=== PATIENT | female | born 1965 | race Caucasian/White ===

== ENCOUNTER 2016-12-14 13:16 | Emergency (ER) | payer OTHER ==
[~2016-12-14] VITALS: Ht 152.4 cm; Wt 49.9 kg
--- NOTE | 2016-12-14 13:29 | ED GI/GU/ABDOMINAL COMPLAINT ---
History of Present Illness General Chief Complaint: General Adult Stated Complaint: PT IS HAVING DIARRHEA , STOMACH PAINS Source: patient Exam Limitations: no limitations Vital Signs & Intake/Output Vital Signs & Intake/Output Vital Signs Date Time Temp Pulse Resp B/P B/P Pulse O2 O2 Flow FiO2 Mean Ox Delivery Rate 12/14 1529 96.5 61 18 101/56 98 Room Air 12/14 1457 Room Air Room Air 12/14 1321 98.1 55 16 94/65 97 Room Air Allergies Coded Allergies: morphine (HIVES, ITCHY 12/14/16) Reconcile Medications Escitalopram Oxalate 20 MG TABLET 1 TAB PO DAILY MENTAL HEALTH (Reported) Omeprazole Magnesium (Prilosec Otc) 20 MG TABLET.DR 1 TAB PO DAILY PUD Triage Note: PT STATES SHE IS HAVING SEVERE PAIN IN EPIGASTRIC AREA. PT STATES HER DR. THINKS IT COULD BE HER PANREAS. PT DENIES ETOH. PT STATES SHE HAS HAD DIARRHEA SINCE YESTERDAY. Triage Nurses Notes Reviewed? yes ? N Is pt currently ? No Onset: 2 DAYS AGO Duration: minute(s): Timing: MULTIPLE EPISODES DAILY Quality/Severity: stabbing Location: epigastric Radiation: no radiation Activities at Onset: none HPI: 51 Y/O FEMALE WITH H/O ETOH ABUSE (HAS BEEN SOBER FOR "MANY YEARS") PRESENTING WITH INTERMITTENT EPISODES OF NON-RADIATING, SHARP EPIGASTRIC PAIN OVER THE PAST 2 DAYS. EPISODES WILL LAST ABOUT 60 SECONDS AND THEN SELF RESOLVE, WITH NO WORSENING OR ALLEVIATING FACTORS. HAS TRIED TUMS WITHOUT RELIEF. ALSO ENDORSES DECREASED PO INTAKE AND DARK BROWN DIARRHEA. DENIES FEVERS, NAUSEA, VOMITING, DYSURIA, OR VAG DISCHARGE/BLEEDING. NO RECENT ETOH OR NSAID USE. NO SICK CONTACTS OR RECENT TRAVEL. Denies any hematuria dysuria (SHONA GARNETT) Past History Travel History Traveled to [place] past 21 day No Medical History Any Pertinent Medical History? see below for history Surgical History Surgical History: non-contributory Psychosocial History What is your primary language [place] Tobacco Use: Never used ETOH Use: denies use Illicit Drug Use: denies illicit drug use Family History Hx Contributory? No (SHONA GARNETT) Review of Systems Review of Systems Constitutional: Denies: fever, malaise, weakness. EENTM: Reports: no symptoms. Respiratory: Reports: no symptoms. Cardiovascular: Reports: no symptoms. GI: Reports: abdominal pain, diarrhea. Denies: melena, nausea, bloody stool, vomiting. Genitourinary: Denies: discharge, dysuria, frequency, urgency. Musculoskeletal: Reports: no symptoms. Skin: Reports: no symptoms. Neurological/Psychological: Reports: no symptoms. Hematologic/Endocrine: Reports: no symptoms. Immunologic/Allergic: Reports: no symptoms. (SHONA GARNETT) Physical Exam Physical Exam General Appearance: well developed/nourished, no apparent distress Head: atraumatic Eyes: Bilateral: normal appearance. Ears, Nose, Throat, Mouth: hearing grossly normal Neck: normal inspection Respiratory: normal breath sounds, lungs clear Cardiovascular: regular rate/rhythm Gastrointestinal: normal bowel sounds, soft, guarding, tenderness, ABD IS SOFT, ND, +TTP IN THE EPIGASTRIUM WITH GUARDING, NO REBOUND, NORMAL BS.MILD RLQ PAIN Rectal: heme negative stool Back: normal inspection Extremities: normal range of motion Neurologic/Psych: no motor/sensory deficits, awake, alert, oriented x 3 Skin: intact, normal color, warm/dry Core Measures ACS in differential dx? No Severe Sepsis Present: No Septic Shock Present: No (SHONA GARNETT) Progress Differential Diagnosis: AAA, AMI, appendicitis, biliary colic, bowel obstruction , colon cancer, cholecystitis, diverticulitis, endometritis, gastritis, hepatitis, hernia, hemorrhoids, ischemic bowel, inflamm bowel dis, kidney stone, ovarian cyst, ovarian torsion, pancreatitis, PID/cervicitis, peptic ulcer, PUD/ GERD, perforated viscous, SBO, UTI/pyelo Plan of Care: Orders Procedure Date/time Status LACTIC ACID 12/14 1701 Active AMYLASE 12/14 1437 Complete CULTURE,URINE 12/14 1401 Active URINALYSIS 12/14 1401 Complete LIPASE 12/14 1401 Complete LACTIC ACID 12/14 1401 Complete COMPREHENSIVE METABOLIC PANEL 12/14 1401 Complete CBC WITHOUT DIFFERENTIAL 12/14 1401 Complete Laboratory Tests 12/14/16 1530: Urine Color YEL, Urine Clarity CLEAR, Urine pH 6.0, Ur Specific [place] 1.010, Urine Protein NEG, Urine Ketones NEG, Urine Nitrite NEG, Urine Bilirubin NEG, Urine Urobilinogen 0.2, Ur Leukocyte Esterase NEG, Ur Microscopic SEDIMENT EXAMINED, Urine RBC 3-5, Urine WBC RARE, Ur Epithelial Cells FEW, Urine Bacteria FEW H, Urine Mucus FEW, Urine Hemoglobin TRACE-INTACT, Urine Glucose NEG 12/14/16 1437: Anion Gap 9, Estimated GFR > 60, BUN/Creatinine Ratio 15.7, Glucose 82, Lactic Acid 0.8, Calcium 8.9, Total Bilirubin 0.7, AST 20, ALT 41, Alkaline Phosphatase 43, Total Protein 6.5, Albumin 3.8, Globulin 2.7, Albumin/Globulin Ratio 1.4, Amylase 60, Lipase 111, CBC w Diff NO MAN DIFF REQ, RBC 4.21, MCV 99.2 H, MCH 32.5 H, RDW 13.1, MPV 9.3, Gran % 59.7, Lymphocytes % 27.6, Monocytes % 8.8, Eosinophils % 3.1, Basophils % 0.8, Absolute Granulocytes 5.2, Absolute Lymphocytes 2.4, Absolute Monocytes 0.8 H, Absolute Eosinophils 0.3, Absolute Basophils 0.1, PUBS MCHC 32.8 L 12/14/16 1402: Amylase Cancelled Microbiology 12/14 1530 URINE ROUT: Urine Culture - RECD After initial examination patient resting comfortably at bedside After GI cocktail was administered patient had moderate relief of epigastric pain. Patient on reevaluation had no right lower quadrant pain due to his of present illness and exam findings I do not suspect patient have appendicitis. Upon discharge patient looks well no apparent distress and will comply with discharge instructions and had no questions I discussed with patient and instructed that if symptoms of appendicitis occur to return to emergency room and she will comply (SHONA GARNETT) Initial ED EKG: none (SHONA GARNETT) Departure Departure Disposition: HOME OR SELF CARE Condition: Stable Clinical Impression Primary Impression: Epigastric pain Referrals: KHUSHBOO MALDONADO,MELANIE ROSA MD,DONTA Beltrán (PCP/Family) Additional Instructions: As discussed if no better on Tuesday follow-up with culvert installer Dr. CUELLO for further evaluation treatment. Please begin a 24 hours regimen of clear liquid diet and bland diet. Begin the prescription of Prilosec for your symptoms. Begin [id number] Tylenol for pain and please avoid NSAIDs as this may worsen your symptoms. Begin [id number] Maalox If symptoms worsen return to emergency room. Prescription is waiting at your pharmacy. Departure Forms: Customer Survey General Discharge Information Prescriptions: Current Visit Scripts Omeprazole Magnesium (Prilosec Otc) 1 TAB PO DAILY #30 TAB (SHONA GARNETT) PA/SWEATB[employer] DECORATING MACHINE OPERATOR Co-Sign Statement Statement: ED Attending supervision documentation- [] I saw and evaluated the patient. I have also reviewed all the pertinent lab results and diagnostic results. I agree with the findings and the plan of care as documented in the PA's/SWEATB[employer] DECORATING MACHINE OPERATOR's documentation. x I have reviewed the ED Record and agree with the PA's/SWEATBAND DECORATING MACHINE OPERATOR's documentation. [] Additions or exceptions (if any) to the PAs/SWEATBAND DECORATING MACHINE OPERATOR's note and plan are summarized below: [] (AYAAN MALDONADO,JASS)
[2016-12-14] MEDS ORDERED: ESCITALOPRAM OX20 MG PO (14:29)
[2016-12-14 14:47] LABS: ABSOLUTE BASOPHIL COUNT 0.1 /CUMM (0.0-0.2); ABSOLUTE EOSINOPHIL COUNT 0.3 /CUMM (0.0-0.7); ABSOLUTE GRANULOCYTE CT 5.2 /CUMM (1.4-6.5); ABSOLUTE LYMPH COUNT 2.4 /CUMM (1.2-3.4); ABSOLUTE MONOCYTE COUNT 0.8 /CUMM (0.10-0.60); BASOPHIL % 0.8 % (0.0-2.0); EOSINOPHIL % 3.1 % (0-5); GRANULOCYTE % 59.7 % (42.2-75.2); HEMATOCRIT 41.8 % (37-47); MEAN CORPUSCULAR HGB 32.5 PG (27.0-31.0); MEAN CORPUSCULAR HGB CONC 32.8 G/DL (33.0-37.0); MEAN CORPUSCULAR VOLUME 99.2 FL (81.0-99.0); MEAN PLATELET VOLUME 9.3 FL (7.4-10.4); PLATELET COUNT 281 /CUMM (130-400); RBC DISTRIBUTION WIDTH 13.1 % (11.5-14.5); RED BLOOD CELL CT 4.21 /CUMM (4.20-5.40); WHITE BLOOD CELL COUNT 8.7 /CUMM (4.8-10.8)
[2016-12-14 15:29] VITALS: BP 101/56
[2016-12-14] MEDS ORDERED: PRILOSEC OTC20 M1 PO (16:18)
== END 2016-12-14 16:31 ==
LOC: ERH 13:16
PROVIDERS: Physician Assistant
DX: R10.13 Epigastric pain (principal)
CPT/HCPCS: 81001; 87086; 96374